=== PATIENT | male | born 1955 | race Caucasian/White ===

== ENCOUNTER 2022-01-05 07:50 | Outpatient (CLI) | payer MEDICARE, SELFPAY | END 2022-01-05 07:51 | disposition home or self-care (01) | LOC: WOUND 07:53 | PROVIDERS: PCP Family Medicine; Visit Provider Nurse Practitioner Family | DX: I87.2 Venous insufficiency (chronic) (peripheral) (principal); L97.825 Non-pressure chronic ulcer of other part of left lower leg with muscle involvement without evidence of necrosis; D68.2 Hereditary deficiency of other clotting factors; Z79.01 Long term (current) use of anticoagulants | CPT/HCPCS: 11043; 87070; 99203 ==

== ENCOUNTER 2022-01-05 08:50 | Outpatient (CLI) | payer MEDICARE, SELFPAY | END 2022-01-05 08:51 | disposition home or self-care (01) | PROVIDERS: PCP Family Medicine; Visit Provider Nurse Practitioner Family | DX: L97.925 Non-pressure chronic ulcer of unspecified part of left lower leg with muscle involvement without evidence of necrosis (principal) | CPT/HCPCS: 87070 ==

== ENCOUNTER 2022-01-19 07:51 | Outpatient (CLI) | payer MEDICARE, SELFPAY | END 2022-01-19 07:52 | disposition home or self-care (01) | LOC: WOUND 07:51 | PROVIDERS: PCP Family Medicine; Visit Provider Physician Assistant Surgical | DX: I87.2 Venous insufficiency (chronic) (peripheral) (principal); L97.825 Non-pressure chronic ulcer of other part of left lower leg with muscle involvement without evidence of necrosis; D68.2 Hereditary deficiency of other clotting factors; Z79.01 Long term (current) use of anticoagulants | CPT/HCPCS: 11043 ==

== ENCOUNTER 2022-02-02 08:03 | Outpatient (CLI) | payer MEDICARE, SELFPAY | END 2022-02-02 08:04 | disposition home or self-care (01) | LOC: WOUND 08:03 | PROVIDERS: PCP Family Medicine; Visit Provider Nurse Practitioner Family | DX: I87.2 Venous insufficiency (chronic) (peripheral) (principal); L97.825 Non-pressure chronic ulcer of other part of left lower leg with muscle involvement without evidence of necrosis; D68.2 Hereditary deficiency of other clotting factors; Z79.01 Long term (current) use of anticoagulants | CPT/HCPCS: 11042 ==

== ENCOUNTER 2022-02-16 07:57 | Outpatient (CLI) | payer MEDICARE, SELFPAY | END 2022-02-16 07:58 | disposition home or self-care (01) | PROVIDERS: PCP Family Medicine; Visit Provider Nurse Practitioner Family | DX: I83.022 Varicose veins of left lower extremity with ulcer of calf (principal); L97.825 Non-pressure chronic ulcer of other part of left lower leg with muscle involvement without evidence of necrosis; I87.2 Venous insufficiency (chronic) (peripheral); D68.2 Hereditary deficiency of other clotting factors; Z79.01 Long term (current) use of anticoagulants | CPT/HCPCS: 99212 ==